=== PATIENT | male | born 1990 | race Caucasian/White ===

== ENCOUNTER 2019-02-16 04:42 | Emergency (ER) | payer OTHER ==
[~2019-02-16] VITALS: Ht 190.5 cm; Wt 104.3 kg
[~2019-02-16 04:42] MED LIST: WELLBUTRIN SR100 MG
[2019-02-16] MEDS ORDERED: WELLBUTRIN XL300 MG PO (04:56)
[2019-02-16] MEDS ORDERED: GABAPENTIN300 MG PO (04:57)
[2019-02-16] MEDS ORDERED: CLONIDINE HCL0.1 MG PO (04:57)
[2019-02-16] MEDS ORDERED: CYMBALTA20 MG (04:58)
[2019-02-16] MEDS ORDERED: OMEPRAZOLE20 MG PO (07:03)
[2019-02-16] MEDS ORDERED: ONDANSETRON ODT8 MG PO (07:03)
== END 2019-02-16 07:15 | disposition home or self-care (01) ==
LOC: ED 04:42
DX: K30 Functional dyspepsia (principal); I10 Essential (primary) hypertension; Z79.899 Other long term (current) drug therapy
CPT/HCPCS: 74177; 80053; 81001; 83690; 85025; 96374; 96375; 99284-25; J1170; J2405; J7030

== ENCOUNTER 2019-02-23 20:09 | Emergency (ER) | payer OTHER ==
[~2019-02-23] VITALS: Ht 190.5 cm; Wt 104.3 kg
[~2019-02-23 20:09] MED LIST changes: +CLONIDINE HCL0.1 MG PO; +CYMBALTA20 MG; +GABAPENTIN300 MG PO; +OMEPRAZOLE20 MG PO; +ONDANSETRON ODT8 MG PO; +WELLBUTRIN XL300 MG PO
--- OUTSIDE RECORDS SUMMARY | 2019-02-23 20:12 | XMS ---
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 [place] VISIT COUNT (12 MO.) 2 [facility] TOTAL 2 NOTE: Visits indicate total known visits. 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
[2019-02-23] MEDS ORDERED: WELLBUTRIN SR150 MG PO (20:22)
[2019-02-23] MEDS ORDERED: WELLBUTRIN XL300 MG PO (20:23)
== END 2019-02-23 22:20 | disposition left against medical advice (07) ==
LOC: ED 20:09
DX: Z53.21 Procedure and treatment not carried out due to patient leaving prior to being seen by health care provider (principal)

== ENCOUNTER 2022-09-30 04:28 | Emergency (ER) | payer OTHER | END 2022-09-30 07:00 | disposition home or self-care (01) | LOC: ED 04:28 | DX: L02.31 Cutaneous abscess of buttock (principal); I10 Essential (primary) hypertension; F32.A Depression, unspecified; Z87.891 Personal history of nicotine dependence; Z79.899 Other long term (current) drug therapy ==

== ENCOUNTER 2024-06-29 10:14 | Emergency (ER) | payer OTHER ==
[~2024-06-29] VITALS: Ht 190.5 cm; Wt 131.5 kg
[~2024-06-29 10:14] MED LIST changes: +BACTRIM DS TAB1 EACH PO; +WELLBUTRIN SR150 MG PO
--- OUTSIDE RECORDS SUMMARY | 2024-06-29 10:20 | XMS ---
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 E.D. VISIT COUNT (12 MO.) 1 [facility] TOTAL 1 NOTE: Visits indicate total known visits. ED/UCC VISIT TRACKING (12 MO.) 06/29/2024 10:14 [facility] [place] TYPE: Emergency COMPLAINT: - HEAD INJURY INPATIENT VISIT TRACKING (12 MO.) No inpatient visits to display in this time frame [email or web address]
[2024-06-29] MEDS ORDERED: DIPHTH,PERTUSS(ACELL),TET VAC 0.5 ML SYRINGE IM ONE (10:45)
[2024-06-29] MEDS ORDERED: HYDROCODONE/ACETA 5/325 TAB PO ONE (10:45)
[2024-06-29 11:01] LABS: BASOPHILS 0.6 % (0-2); EOSINOPHILS 0.7 % (0-6); HEMATOCRIT 47.6 % (35.0-50.0); HEMOGLOBIN 16.7 g/dL (12.0-18.0); LYMPHOCYTES 21.5 % (24-44); MCH 30.6 (27-36); MCV 87.6 fl (81-99); MONOCYTES 7.8 % (0-12); NEUTROPHILS 69.4 % (39-80); PLATELET COUNT 191 K/uL (140-440); RBC 5.44 M/ul (4.3-5.7); RDW 13.7 (10.5-15.0)
[2024-06-29 11:25] LABS: ACETAMINOPHEN 0 ug/mL (10-30); ALCOHOL, MEDICAL <3 ng/dL (<3); SALICYLATE 1.5 mg/dL (2.8-20.0); TSH, 3RD GENERATION 0.932 uIU/mL (0.358-3.740)
[2024-06-29 12:10] LABS: AMPHETAMINES, URINE NEGATIVE (NEGATIVE); BARBITURATES, URINE NEGATIVE (NEGATIVE); BENZODIAZEPINE, URINE NEGATIVE (NEGATIVE); BUPRENORPHINE, URINE NEGATIVE (NEGATIVE); CANNABINOID, URINE POSITIVE (NEGATIVE); COCAINE, URINE NEGATIVE (NEGATIVE); ECSTASY, URINE NEGATIVE (NEGATIVE); FENTANYL, URINE NEGATIVE (NEGATIVE); METHADONE, URINE NEGATIVE (NEGATIVE); OPIATES, URINE NEGATIVE (NEGATIVE); OXYCODONE, URINE NEGATIVE (NEGATIVE); PHENCYCLIDINE, URINE NEGATIVE (NEGATIVE)
[2024-06-29 12:41] LABS: ALBUMIN 4.4 g/dL (3.4-5.0); ALBUMIN/GLOBULIN RATIO 1.38 (1.1-2.4); ANION GAP 11.4 (7-21); BUN/CREATININE RATIO 12.87 (6.0-28.6); CALCIUM 9.4 mg/dL (8.5-10.1); CREATININE, SERUM 1.01 mg/dL (0.70-1.30); POTASSIUM 4.4 mmol/L (3.5-5.1); PROTEIN, TOTAL 7.6 g/dL (6.4-8.2)
[2024-06-29 15:55] VITALS: BP 160/106
== END 2024-06-29 15:56 | disposition home or self-care (01) ==
LOC: ED 10:14
PROVIDERS: Emergency Medicine
DX: S01.81XA Laceration without foreign body of other part of head, initial encounter (principal); I10 Essential (primary) hypertension; Z87.891 Personal history of nicotine dependence; W22.8XXA Striking against or struck by other objects, initial encounter
CPT/HCPCS: 12013; 36415; 70450; 72125; 80053; 80307; 84443; 85025; 90471; 90715; 99284-25; G0480

== ENCOUNTER 2024-08-29 07:40 | Inpatient (IN) | payer OTHER ==
[~2024-08-29] VITALS: Ht 190.5 cm; Wt 129.5 kg
[2024-08-29] VITALS (8 sets, daily range): BP systolic 125–154; BP diastolic 66–85
--- OUTSIDE RECORDS SUMMARY | 2024-08-29 07:47 | XMS ---
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 PHONE: [phone] -Jimbo- Dentist: Cashier Tube Room Current [facility] PHONE: [phone] Michael Bray DO [facility] Current PHONE: Unknown Garcia has no Care Guidelines for this patient. E.D. VISIT COUNT (12 MO.) 2 [facility] TOTAL 2 NOTE: Visits indicate total known visits. ED/UCC VISIT TRACKING (12 MO.) 08/29/2024 07:41 [facility] TYPE: Emergency COMPLAINT: - ABDOMINAL PAIN 06/29/2024 10:14 [facility] TYPE: Emergency COMPLAINT: - HEAD INJURY DIAGNOSES: - Essential (primary) hypertension - Laceration without foreign body of other part of head, initial encounter - Laceration without foreign body of unspecified part of head, initial encounter - Personal history of nicotine dependence - Striking against or struck by other objects, initial encounter INPATIENT VISIT TRACKING (12 MO.) No inpatient visits to display in this time frame [id number]
[2024-08-29] MEDS ORDERED: CLONIDINE HCL0.1 MG PO (07:57)
[2024-08-29] MEDS ORDERED: FAMOTIDINE 20 MG/ 2 ML VIAL IV ONE (08:00)
[2024-08-29] MEDS ORDERED: LIDOCAINE & ANTACID 35 ML BTL PO ONE (08:00)
[2024-08-29] MEDS ORDERED: SODIUM CHLORIDE 0.9% 1,000 ML IV PRN (08:00)
[2024-08-29 08:01] LABS: BASOPHILS 0.4 % (0.2-1.2); EOSINOPHILS 0.4 % (0.8-7.0); LYMPHOCYTES 9.4 % (21.8-53.1); MCH 30.4 PG (25.7-32.2); MCHC 35.6 g/dL (32.3-36.5); MCV 85.4 fL (79.0-92.2); MONOCYTES 6.2 % (5.3-12.2); NEUTROPHILS 83.1 % (34.0-67.9); RBC 5.82 M/uL (4.63-6.08)
[2024-08-29 08:18] LABS: ALT (SGPT) 37.0 U/L (14-59); AST (SGOT) 17.0 U/L (15-37); GLOMERULAR FILTRATION RATE,EST 81.0 mL/min (>60); PROTEIN, TOTAL 8.1 g/dL (6.4-8.2); UREA NITROGEN 23.0 mg/dL (7-18)
[2024-08-29] MEDS ORDERED: MORPHINE SULFATE 4 MG/ML VIAL IV ONE (08:30)
[2024-08-29] MEDS ORDERED: PIPERACILLIN/TAZOBACTAM 4.5 GM in SODIUM CHLORIDE 0.9% 100 ML IV ONE (09:15)
[2024-08-29] MEDS ORDERED: HYDROmorphone HCL 1 MG/ML SYR IV ONE ×2 (09:15→09:45)
[2024-08-29] MEDS ORDERED: LACTATED RINGER'S 1,000 ML IV ONE ×2 (09:45→11:15)
--- NOTE | 2024-08-29 09:50 | NUR ---
PT REPORT RECIEVED FROM PEPE PHILLIP. PT SITTING UP IN BED AND WAS ABLE TO AMBULATE FROM STRETCHER TO BED. PT HAS NO CURRENT CONCERNS AND PAIN IS UNDER CONTROL. [T HAS CALL LIGHT IN REACH AT THIS TIME.
[2024-08-29] MEDS ORDERED: HYDROmorphone HCL 1 MG/ML SYR IV PRN ×2 (10:30→14:45)
[2024-08-29] MEDS ORDERED: FAMOTIDINE 20 MG/ 2 ML VIAL IV SCH (11:04)
[2024-08-29] MEDS ORDERED: MORPHINE SULFATE 10 MG/ML VIAL IV PRN (11:15)
[2024-08-29] MEDS ORDERED: KETOROLAC TROMETHAMINE 30 MG/ML VIAL IV PRN (11:15)
[2024-08-29] MEDS ORDERED: KETOROLAC TROMETHAMINE 30 MG/ML VIAL ONE (11:58)
[2024-08-29] MEDS ORDERED: DEXAMETHASONE SOD PHOS 4 MG/ML VIAL ONE (11:58)
[2024-08-29] MEDS ORDERED: ROCURONIUM BROMIDE 50 MG/5 ML SYR ONE (11:59)
[2024-08-29] MEDS ORDERED: LIDOCAINE HCL 2% 5 ML SDV ONE ×2 (11:59→14:40)
[2024-08-29] MEDS ORDERED: KETAMINE in NS 50 MG/5 ML SYR ONE (11:59)
--- NOTE | 2024-08-29 12:01 | NUR ---
PT TRANSPORTED VIA STRETCHER TO OR WITH PEPE CORTEZ. PT SENT WITH PRIMED STRIGHT TUBING/LR. PT HAS NO CONCERNS AT THIS TIME AND FAMILY WILL BE WAITING IN ROOM FOR PT TO RETURN.
[2024-08-29] MEDS ORDERED: ACETAMINOPHEN 1,000 MG/100 ML VIAL ONE (12:25)
--- NOTE | 2024-08-29 12:25 | HP ---
[facility] [address], [place] [address] Signed ADMISSION DATE: 08/29/2024 REASON FOR ADMISSION: Acute appendicitis with fecalith. HISTORY OF PRESENT ILLNESS: This 34-year-old white man began having pain yesterday evening, which was generalized in the abdomen and progressed to the right lower abdomen. He presented to the emergency room where he was evaluated by Dr. José Gayle confirming that he had not only pain, but vomiting. He has had no hematemesis or blood per rectum or diarrhea per se. Evaluation showed him to be afebrile, but with marked tenderness in the right lower quadrant. White count was 13.2. The CT scan confirmed acute appendicitis with radiodense fecalith. He is admitted for further evaluation and care. PAST MEDICAL HISTORY: Notable for marijuana use. He has had right leg fracture repair, inguinal hernia repair and vasectomy in the past. He takes clonidine 0.1 mg daily. He has hypertension, depression and anxiety. SOCIAL HISTORY: He is . He is accompanied by his and his mother. 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 REVIEW OF SYSTEMS: He denies any shortness of breath or chest pain. He has had nausea and vomiting and feels thirsty. PHYSICAL EXAMINATION: GENERAL: A large white male with a full christine. VITAL SIGNS: Height is 6 feet 3 inches, weight 129 kg. BMI 35.7. Trachea is midline. Blood pressure at 0900 was 167/126 with a pulse of 60, temperature 98.2. Previous blood pressure 157/98. CHEST: Clear. HEART: Regular without murmur. ABDOMEN: Scaphoid, and Rovsing sign is positive, and he has tenderness in the right lower quadrant. LAB STUDIES: Show a white count of 13.2, hematocrit 49.7, platelets 220,000. Chem profile essentially normal. His lipase was 132, which is elevated (normal up to 77). He has no epigastric pain. Electronically Signed By: IRIS WELLS MD 08/29/24 1225 PATIENT NAME: YAMILEX GUTIÉRREZ HISTORY AND PHYSICAL DATE OF : 86 REPORT #: [id number] PHYSICIAN: IRIS WELLS MD PCP: JOSE SWIFT PA-C REPORT IS CONFIDENTIAL AND NOT TO BE RELEASED WITHOUT AUTHORIZATION [facility] [address], [place] [address] Signed ASSESSMENT: The patient has acute appendicitis based on clinical and radiographic appearance. I will recheck his blood pressure as it was relatively high. Repeat blood pressure was shown to be 154/85 with a pulse of 105, O2 saturation 98% on nasal cannula oxygen. I discussed the use of illustrations on the dry board, the pathophysiology of appendicitis and recommendation of treatment to include appendectomy, particularly given a radiodense fecalith noted within the appendix. Nonoperative options are available, but he is not the right candidate for that based on current clinical guidelines. The risks of laparoscopic appendectomy were reviewed, which include, but are not limited to bleeding, infection, and perforation and are well understood by patient and his family. An open appendectomy may be required depending on clinical circumstances of course. Additionally, there may be other findings that would require intervention and he agrees to proceed as appropriate. He is clinically rather dehydrated and is now getting 1 L lactated Ringer's bolus. He has been given Zosyn antibiotic and that will be maintained as appropriate. MD TONI Arguello/MODL /[id number] cc: MONIQUE Dickinson Dr. Copies: ~ Electronically Signed By: IRIS WELLS MD 08/29/24 1225 PATIENT NAME: YAMILEX GUTIÉRREZ KAMILAHJEREMIE HISTORY AND PHYSICAL DATE OF : 86 REPORT #: [id number] PHYSICIAN: IRIS WELLS MD PCP: JOSE SWIFT PA-C REPORT IS CONFIDENTIAL AND NOT TO BE RELEASED WITHOUT AUTHORIZATION
[2024-08-29] MEDS ORDERED: SUGAMMADEX SODIUM 200 MG/2 ML ML ONE ×2 (12:35→13:15)
[2024-08-29] MEDS ORDERED: fentaNYL citrate 100 MCG/2 ML VIAL ONE ×2 (13:11→14:48)
[2024-08-29] MEDS ORDERED: GLYCOPYRROLATE 1 MG/5 ML MDV ONE (13:16)
--- NOTE | 2024-08-29 13:48 | NUR ---
08/29/24 1348 Clarisse,Polly 1338 PT ARRIVED TO PACU ON 6L VIA MASK, PT REACHING UP FOR HIS FACE AND PULLED OFF O2 MASK. RNS AT BEDSIDE HELP PROTECT PT EYES AND START REORIENTING PT TO PACU. HOB INCREASED. 1347 PT WAKES OFF AND ON AND COUGHES. PT EASILY FALLS BACK TO SLEEP WITH SNORING NOTED OFF AND ON.
[2024-08-29] MEDS ORDERED: AMOXICILLIN/CLAVULANATE K 500 MG TAB PO SCH (14:00)
[2024-08-29] MEDS ORDERED: HEParin SOD (PORCINE) 5,000 UNIT/ML SDV SUB-Q SCH (14:00)
[2024-08-29] MEDS ORDERED: OXYCODONE HCL 5 MG TAB PO PRN (14:30)
[2024-08-29] MEDS ORDERED: IBUPROFEN 600 MG TAB PO PRN (14:30)
[2024-08-29] MEDS ORDERED: BUPIVACAINE 0.75% IN DEXTROSE 2 ML AMP ONE (14:30)
[2024-08-29] MEDS ORDERED: ACETAMINOPHEN 500 MG TAB PO PRN (14:30)
--- NOTE | 2024-08-29 14:43 | NUR ---
PT RETURNED FROM SURGERY, PT TRANSPORTED VIA BED AND ON RA, VS STABLE, AND CPOX IN PLACE AT THIS TIME. PT AWAKE AND ALERT AND EXPRESSES THEY HAVE NO PAIN OR NAUSEA AT THIS TIME. PT HAS CALL LIGHT IN REACH AT THIS TIME WITH FAMILY CURRENTLY IN ROOM WITH PT.
[2024-08-29] MEDS ORDERED: SEVOFLURANE 250 ML BTL INH ONE (14:44)
[2024-08-29] MEDS ORDERED: MIDAZOLAM HCL 2 MG/2 ML VIAL IV PRN (14:45)
[2024-08-29] MEDS ORDERED: NALOXONE HCL 0.4 MG SYR IV PRN (14:45)
[2024-08-29] MEDS ORDERED: fentaNYL citrate 50 MCG/ML SDV IV PRN (14:45)
--- NOTE | 2024-08-29 15:42 | NUR ---
PT SITTING UP IN BED AT THIS TIME, PT HAS NO PAIN TO BE MENTIONED, DENIES NAUSEA, AND HAS VOIDED. PT HAS CALL LIGHT IN REACH AT THIS TIME.
--- NOTE | 2024-08-29 15:43 | NUR ---
PATIENT IN BED AT THIS TIME. LEARNING AND DEVELOPMENT INTERN CHARTED HOURLY ROUNDS. CALL LIGHT WITHIN REAH, NO FURTHER NEEDS AT THIS TIME.
--- NOTE | 2024-08-29 16:52 | NUR ---
PT SITTING UP IN BED AT THIS TIME PT DENIES NEEDING ANYTHING FOR PAIN AT THIS TIME. PT HAS NO CURRENT NEEDS AND HAS CALL LIGHT IN REACH AT THIS TIME.
--- NOTE | 2024-08-29 17:00 | NUR ---
PT SITTING UP IN BED, PT DENIES PAIN AT THIS TIME. PT LAP CITE ARE CDI. PT DECLINED DINNER CONTANING PORK DUE TO RELIGON, PT AGREEABLE TO HAVE A SANDWHICH BOX AND OTHER SNACKS. PT TOLERATED WELL AT THIS TIME AND HAS CALL LIGHT IN REACH.
[2024-08-29] MEDS ORDERED: AMOXICILLIN/CLAVULANATE K 500 MG TAB ONE (17:41)
--- NOTE | 2024-08-29 18:38 | NUR ---
PT CURRENTLY SITTING UP IN BED, PT TOLERATED WALKING TO THE RESTROOM WELL AND HAS NO CURRENT NEEDS AT THIS TIME. PT FAMILY CURRENTLY IN ROOM AND CALL LIGHT IN REACH.
[2024-08-29] MEDS ORDERED: OXYCODONE/ACETAMINOPHEN 1 TAB HOME.PACK PO ONE (20:30)
--- NOTE | 2024-08-29 21:00 | NUR ---
Pt discharged home w/ per Dr. Lema order. Vitally stable. IV's removed. Pt educated/discharge instruction given by charge nurse.
--- NOTE | 2024-08-30 19:03 | OR ---
[facility] [address], [place] [address] Signed DATE OF OPERATION: 08/29/2024 SURGEON: Iris Wells MD PREOPERATIVE DIAGNOSIS: Acute appendicitis with fecalith. POSTOPERATIVE DIAGNOSIS: Acute appendicitis with gangrenous changes, but without perforation. PROCEDURE: Laparoscopic appendectomy. ANESTHESIA: General endotracheal; Carina Otero CRNA and local 10 mL of 0.25% Marcaine with epinephrine. INDICATION: This 34-year-old white man began having abdominal pain symptoms and protracted nausea and vomiting last night, presented to the emergency room today where he was evaluated by Dr. Gayle with findings consistent with acute appendicitis. His white count was elevated to greater than 13, and a CT scan showed a radiodense fecalith associated with a very dilated appendix consistent with appendicitis. He had mild elevation of lipase level as well. He has been fluid resuscitated given intravenous antibiotic Zosyn and now to undergo appendectomy preferably by laparoscopic approach. The risk of bleeding, infection, need for open procedure and other unforeseen complications was reviewed in detail. He understands and wished to proceed. FINDINGS: Indeed the appendix was quite markedly inflamed, edematous and in truth, gangrenous, but without perforation. The ileum and the cecum were normal as was the gallbladder and liver. Complete appendectomy was performed without problem. DESCRIPTION OF PROCEDURE: The patient was brought to the operating room, given a general endotracheal anesthetic. Preoperative antibiotic Zosyn had been given. The abdomen was clipped and prepared with a chlorhexidine solution and draped sterilely. Infraumbilical incision was made and using an open Michael cannula technique, the abdomen entered and pneumoperitoneum achieved to a level of 14 mmHg of carbon dioxide gas. Intra-abdominal inspection showed no sign of ascites or carcinomatosis. An epigastric port was placed and the camera was Electronically Signed By: IRIS WELLS MD 08/30/24 1903 PATIENT NAME: YAMILEX GUTIÉRREZ OPERATIVE REPORT DATE OF : 86 REPORT #: [id number] PHYSICIAN: IRIS WELLS MD PCP: JOSE SWIFT PA-C REPORT IS CONFIDENTIAL AND NOT TO BE RELEASED WITHOUT AUTHORIZATION [facility] [address], [place] [address] Signed placed to that site and a single hand manipulation, the cecum was identified also identifying quite markedly edematous, inflamed and gangrenous in appearance appendix itself. An additional right lower quadrant 5 mm port was placed and with gentle manipulation, the appendix elevated. A window was created between the appendix and the mesoappendix at the base of the appendix near the cecum allowing for passage of a [place] dissector and ultimately an Endo-RACHELE stapling device. The base of the appendix was transected flushed with the cecum with the Endo-RACHELE stapling device with a vascular load. Good hemostasis was noted. The mesoappendix was then isolated and similarly secured with a single load of the Endo-RACHELE stapling device. The appendix was placed in an endobag and extracted through the infraumbilical port site without problem. Irrigation was undertaken in the right lower quadrant. The staple lines appeared to be hemostatic. Inflammatory fluid was copiously irrigated and ultimately suctioned free. A camera was placed to the epigastric port and the right lower quadrant trocar was removed and ultimately the epigastric port removed after suctioning any fluid that was above the liver itself. Attention was then turned toward closure of the infraumbilical fascial incision. This was accomplished with interrupted 0 Vicryl suture. 10 mL of 0.25% Marcaine with epinephrine was injected locally. The skin was then closed with interrupted 3-0 Vicryl. Steri-Strips were applied. The patient was ultimately extubated and transferred to the recovery room in good condition having suffered no complication. Sponge, needle, and instrument counts were reported as correct x3. MD TONI Arguello/MARINAL /[id number] cc: Dr. Irwin Garciaony MONIQUE Costa Copies: ~ Electronically Signed By: IRIS WELLS MD 08/30/24 1903 PATIENT NAME: YAMILEX GUTIÉRREZ OPERATIVE REPORT DATE OF : 86 REPORT #: [id number] PHYSICIAN: IRIS WELLS MD PCP: JOSE SWIFT PA-C REPORT IS CONFIDENTIAL AND NOT TO BE RELEASED WITHOUT AUTHORIZATION
--- NOTE | 2024-08-31 15:14 | NUR ---
UR RETROACTIVE CLINICAL REVIEW: [facility], ENCOUNTER DISCHARGED, MET OBS FOR APPENDECTOMY SURGICAL PROCEDURE REQUIRED, IV MEDS [place] OBS 08/29/2024 @ 1104 ORDER MATCHES REG NO AUTH REQUIRED FOR OBS PER MEDICAID DC TO HOME.
== END 2024-08-29 21:00 | disposition home or self-care (01) | DRG 399 ==
LOC: ED 07:40 → MS 09:26
PROVIDERS: Emergency Medicine; ADMIT Surgery; ATTEND Surgery
PROC: 3E03329 Introduction of Other Anti-infective into Peripheral Vein, Percutaneous Approach (ICD-10-PCS; 2024-08-29)
PROC: 0DTJ4ZZ Resection of Appendix, Percutaneous Endoscopic Approach (ICD-10-PCS; principal; 2024-08-29 12:00)
DX: K35.891 Other acute appendicitis without perforation, with gangrene (principal); F32.A Depression, unspecified; I10 Essential (primary) hypertension; F41.9 Anxiety disorder, unspecified; F12.90 Cannabis use, unspecified, uncomplicated; Z87.19 Personal history of other diseases of the digestive system; Z87.81 Personal history of (healed) traumatic fracture; Z87.891 Personal history of nicotine dependence; Z98.52 Vasectomy status; Z79.899 Other long term (current) drug therapy
CPT/HCPCS: 36415; 74177; 80053; 83690; 85025; 94762; 94799; 96361; 96365; 96375; 96376; 99285; J0131; J1100; J1171; J1644; J1885; J2003; J2270; J2405; J2543; J2704; J3010; J3490; J7030; J7121; Q9967

== ENCOUNTER 2024-08-30 13:13 | Emergency (ER) | payer OTHER ==
[~2024-08-30] VITALS: Ht 190.5 cm; Wt 132.2 kg
--- OUTSIDE RECORDS SUMMARY | 2024-08-30 13:19 | XMS ---
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 E.D. VISIT COUNT (12 MO.) 3 [facility] TOTAL 3 NOTE: Visits indicate total known visits. ED/UCC VISIT TRACKING (12 MO.) 08/30/2024 13:14 [facility] TYPE: Emergency COMPLAINT: - POST OP PROBLEM 08/29/2024 07:41 [facility] TYPE: Emergency [...] initial encounter INPATIENT VISIT TRACKING (12 MO.) 08/29/2024 09:26 [facility] TYPE: Medical Surgical COMPLAINT: - ACUTE APPY [id number]
[2024-08-30 15:00] VITALS: BP 127/76
== END 2024-08-30 15:01 | disposition home or self-care (01) ==
LOC: ED 13:13
DX: Z48.815 Encounter for surgical aftercare following surgery on the digestive system (principal); I10 Essential (primary) hypertension; Z87.891 Personal history of nicotine dependence
CPT/HCPCS: 12001; 99282

== ENCOUNTER 2025-02-11 11:48 | Emergency (ER) | payer OTHER ==
[~2025-02-11] VITALS: Ht 190.5 cm; Wt 114.0 kg
--- OUTSIDE RECORDS SUMMARY | 2025-02-11 11:55 | XMS ---
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 [place] VISIT COUNT (12 MO.) 4 [facility]ul[facility] TOTAL 4 NOTE: Visits indicate total known visits. ED/UCC VISIT TRACKING (12 MO.) 02/11/2025 11:49 [facility] [place] TYPE: Emergency COMPLAINT: - WOUND 08/30/2024 13:14 [facility] [place] TYPE: Emergency COMPLAINT: - POST OP PROBLEM DIAGNOSES: - Encounter for surgical aftercare following surgery on the digestive system - Essential (primary) hypertension - Personal history of nicotine dependence 08/29/2024 07:41 [facility] [place] TYPE: Emergency [...] TYPE: Medical Surgical COMPLAINT: - ACUTE APPY DIAGNOSES: - Anxiety disorder, unspecified - Anxiety disorder, unspecified - Cannabis use, unspecified, uncomplicated - Cannabis use, unspecified, uncomplicated - Depression, unspecified - Depression, unspecified - Essential (primary) hypertension - Essential (primary) hypertension - Other acute appendicitis without perforation, with gangrene - Other acute appendicitis without perforation, with gangrene - Other long-term (current) drug therapy - 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
[2025-02-11] MEDS ORDERED: BUPROPION HCL150 M2 PO (12:09)
[2025-02-11] MEDS ORDERED: PRAZOSIN HCL1 MG PO (12:09)
[2025-02-11] MEDS ORDERED: CEPHALEXIN MONOHYDRATE 500 MG CAP PO ONE (13:00)
[2025-02-11] MEDS ORDERED: HYDROCODONE/ACETA 7.5/325 TAB PO ONE (13:00)
[2025-02-11] MEDS ORDERED: CEPHALEXIN500 M1 PO (13:54)
[2025-02-11] MEDS ORDERED: CEPHALEXIN MONOHYDRATE 500 MG HOME.PACK PO ONE (14:00)
[2025-02-11] MEDS ORDERED: HYDROCODONE BIT/ACETAMINOPHEN 5/325 MG 1 TAB HOME.PACK PO ONE (14:30)
== END 2025-02-11 14:32 | disposition home or self-care (01) ==
LOC: ED 11:48
DX: L05.01 Pilonidal cyst with abscess (principal); I10 Essential (primary) hypertension; Z79.899 Other long term (current) drug therapy; Z87.891 Personal history of nicotine dependence
CPT/HCPCS: 10080; 99283-25; A9270